=== PATIENT | male | born 1980 | race Caucasian/White ===

== ENCOUNTER → 2022-01-19 11:32 | Outpatient (BNVA) | payer MEDICAID, SELFPAY | PROVIDERS: PCP Family Medicine; Referring Provider Pediatrics; Visit Provider Surgery | DX: L30.9 Dermatitis, unspecified (principal) | CPT/HCPCS: 46600; 99202 ==

== ENCOUNTER 2022-02-10 07:52 | Outpatient (REF) | payer MEDICAID, SELFPAY ==
[2022-02-10 07:55] VITALS: BP 98/64; PULSE 71; RESP 16; TEMP 36.8; O2SAT 97
[2022-02-10 08:14] VITALS: BMI 20.5
[2022-02-10 08:20] VITALS: BP 107/66; PULSE 79; RESP 16; O2SAT 97
--- NOTE | 2022-02-10 08:21 | W.PM.OPN ---
Operative Note Operative Note Date of Service: 02/10/22 Narrative: Preop diagnosis: Perianal dermatitis Postop diagnosis: The same Procedure: Biopsy of perianal skin Surgeon: Carlito Peacock M.D. The patient is a 41M with a perianal dermatitis. I had schedule him for a skin biopsy for this. He understood the technique of the procedur as well as the risks, benefits and alternatives. He was brought to the Minor Procedure and placed in left lateral decub position. The right buttock was retracted with wide tape to expose the perianal skin. There was a an area of the perianal skin, confluent around the anus with dermatitic changes. I infiltrated the left perianal skin wioth Lidocain 1%. Iexcised a wedge shaped piece of skin about .75 cm long using a blade 15. This was sent to pathology. I closed this incision with a figure of eight Maxon 4-0 abosrabale stitch. He tolerated the procedure well. There were no complications. He was given wound care instructions.
== END 2022-02-10 07:53 | disposition home or self-care (01) ==
LOC: HO.MS 07:52
PROVIDERS: PCP Family Medicine; Visit Provider Surgery
PROC: (CPT 11106; principal; 2022-02-10 08:00)
DX: L30.8 Other specified dermatitis (principal); Z86.14 Personal history of Methicillin resistant Staphylococcus aureus infection
CPT/HCPCS: 11106; 88305; 88312; 88342

== ENCOUNTER 2022-02-21 13:56 | Outpatient (REF) | payer MEDICAID, SELFPAY ==
[2022-02-21 14:17] LABS: MANUAL DIFF FLAG NO
[2022-02-21 14:56] LABS: Basophils Percent Auto 0.7 % (0-2); Eosinophils Absolute Auto 0.2 X10*3/uL (0.0-0.4); Eosinophils Percent Auto 4.3 % (0-4); Hematocrit 43.1 % (42.0-52.0); Hemoglobin 14.8 g/dl (14.0-18.0); Imm Gran Abs Auto 0.02 X10*3/uL (0.00-0.03); Imm Gran Pct Auto 0.4 % (0.0-0.4); Lymphocytes Absolute Auto 1.7 X10*3/uL (1.2-4.9); Lymphocytes Percent Auto 37.8 % (20-40); Mean Corpuscular HGB Conc 34.3 g/dl (31.0-36.0); Mean Corpuscular Hemoglobin 30.5 pg (27.0-33.0); Mean Corpuscular Volume 88.7 fL (80.0-98.0); Mean Platelet Volume 10.8 fL (9.4-12.4); Monocytes Absolute Auto 0.2 X10*3/uL (0.1-1.2); Monocytes Percent Auto 5.1 % (2-11); Neutrophils Absolute Auto 2.3 x10*3/uL (2.0-8.3); Neutrophils Percent Auto 51.7 % (45-73); Platelet Count 239 X10*3/uL (160-400); Red Blood Count 4.86 X10*6/uL (4.60-5.80); Red Cell Distribution Width 12.7 % (11.0-16.0); White Blood Count 4.5 X10*3/uL (4.8-10.8)
[2022-02-21 15:19] LABS: Alanine Aminotransferase 19 U/L (0-40); Albumin Level 4.8 g/dL (3.5-5.0); Alkaline Phosphatase 45 U/L (39-117); Anion Gap 12 (12-20); Aspartate Amino Transferase 15 U/L (5-37); Bilirubin Total 0.9 mg/dL (0.0-1.0); Blood Urea Nitrogen 10 mg/dL (9-16); C Reactive Protein 0.09 mg/dL (< or = 0.50); Carbon Dioxide 31 mmol/L (22-29); Chloride 104 mmol/L (96-108); Cholesterol 166 mg/dL; Estimated Glomerular Filt Rate > 60; Glucose Random 88 mg/dL (60-115); HDL Cholesterol 72 mg/dL; LDL Cholesterol Calculated 81 mg/dl; Potassium 4.8 mmol/L (3.3-5.1); Sodium 142 mmol/L (135-145); Total Protein 7.6 g/dL (6.5-8.0); Triglycerides 67 mg/dL
[2022-02-21 15:34] LABS: Erythrocyte Sedimentation Rate 2 MM/HR (0-15); Syphilis Screen Nonreactive (Nonreactive)
[2022-02-22 04:14] LABS: HBsAGNum1 0.28 S/CO (0.00-0.99); Hepatitis B Surface Antigen Negative (Negative)
[2022-02-22 04:24] LABS: HIV AB/AG Nonreactive (Nonreactive); HIV Num 1 0.08 S/CO (0.00-0.99)
== END 2022-02-21 13:57 | disposition home or self-care (01) ==
LOC: HO.LAB 13:56
PROVIDERS: PCP Family Medicine; Referring Provider Surgery; Visit Provider Family Medicine
DX: Z00.00 Encounter for general adult medical examination without abnormal findings (principal); Z11.4 Encounter for screening for human immunodeficiency virus [HIV]; M54.9 Dorsalgia, unspecified; L30.9 Dermatitis, unspecified
CPT/HCPCS: 36415; 80053; 80061; 84443; 85025; 85652; 86140; 86780; 87340; 87389; 99212